=== PATIENT | male | born 1995 | race Caucasian/White ===

== ENCOUNTER 2017-06-20 14:02 | Emergency (ER) | payer OTHER, SELFPAY ==
[~2017-06-20] VITALS: Ht 185.4 cm; Wt 118.0 kg
[2017-06-20 16:11] LABS: BASO % 0.3 % (0.0-1.0); EOS # 0.3 K/mm3 (0.0-0.50); EOS % 3.3 % (0.0-3.0); LARGE UNSTAINED CELL # 0.1 K/mm3 (0.0-0.4); LARGE UNSTAINED CELL % 1.3 % (0.0-4.0); LYMPH # 2.3 K/mm3 (1.5-6.5); MEAN CORPUSCULAR HEMOGLOBIN 31.8 pg (27.0-33.0); MEAN CORPUSCULAR HGB CONC 34.5 g/dl (32.0-36.5); MEAN CORPUSCULAR VOLUME 92.2 fl (80.0-96.0); MONO # 0.4 K/mm3 (0.0-0.8); MONO % 4.1 % (0.0-5.0); NEUTROPHILS # 5.9 K/mm3 (1.8-7.7); NEUTROPHILS % 66.1 % (36.0-66.0); PLATELET COUNT, AUTOMATED 232 k/mm3 (150-450); RED CELL DISTRIBUTION WIDTH 12.1 % (11.5-14.5); WHITE BLOOD COUNT 8.9 K/mm3 (4.0-10.0)
[2017-06-20 16:36] LABS: ALBUMIN 4.3 GM/DL (3.2-5.2); ALBUMIN/GLOBULIN RATIO 1.48 (1.00-1.93); ALKALINE PHOSPHATASE 71 U/L (45-117); ALT/SGPT 44 U/L (12-78); AMYLASE 63 U/L (25-115); ANION GAP 10 MEQ/L (8-16); AST/SGOT 22 U/L (15-37); BILIRUBIN,DIRECT 0.1 MG/DL (0.0-0.2); BILIRUBIN,TOTAL 0.5 MG/DL (0.2-1.0); BLOOD UREA NITROGEN 11 MG/DL (7-18); CALCIUM LEVEL 8.9 MG/DL (8.5-10.1); CARBON DIOXIDE LEVEL 25 MEQ/L (21-32); CHLORIDE LEVEL 106 MEQ/L (98-107); CREATININE FOR GFR 1.02 MG/DL (0.70-1.30); GLOMERULAR FILTRATION RATE > 60.0 (>60); GLUCOSE, FASTING 87 MG/DL (70-105); POTASSIUM SERUM 3.8 MEQ/L (3.5-5.1); SODIUM LEVEL 141 MEQ/L (136-145); TOTAL PROTEIN 7.2 GM/DL (6.4-8.2)
[2017-06-20] MEDS ORDERED: NS 1,000 ML IV ONE (16:45)
[2017-06-20] MEDS ORDERED: ISOVUE-370 76% 100ML VIAL (Q9967) As Ordered ONE (16:45)
[2017-06-20] MEDS ORDERED: MORPHINE 2 MG/ML 1ML SYRINGE IV PRN (16:45)
[2017-06-20] MEDS ORDERED: ONDANSETRON 4MG/2ML VIAL (J2405) IV ONE (16:45)
--- NOTE | 2017-06-20 18:04 | REP ---
CT ABDOMEN AND PELVIS WITH CONTRAST: HISTORY: Right lower quadrant pain. CONTRAST: Isovue-370, 100 mL The liver, gallbladder, pancreas, spleen, adrenal glands and kidneys are normal in appearance. There is no mass, adenopathy or free fluid. The visualized lungs are clear. IMPRESSION: Normal CT abdomen. CT PELVIS: The prostate gland and urinary bladder are normal in appearance. There is no mass, adenopathy or free fluid. IMPRESSION: Normal CT pelvis. Signed by Rashard Perez MD 06/20/2017 06:18 P
[2017-06-20 18:34] VITALS: BP 140/71
== END 2017-06-20 18:36 | disposition home or self-care (01) ==
LOC: M ED 14:02
DX: A08.4 Viral intestinal infection, unspecified (principal); I10 Essential (primary) hypertension; F17.210 Nicotine dependence, cigarettes, uncomplicated; Z88.0 Allergy status to penicillin
CPT/HCPCS: 74177; 80048; 80076; 81001; 82150; 83690; 85025; 96374; 96375; 99283; J2405; Q9967

== ENCOUNTER → 2017-06-24 | Outpatient (REF) | payer OTHER, SELFPAY | LOC: M SFHCLERA 15:07 | PROVIDERS: ATTEND Nurse Practitioner Family | DX: R10.9 Unspecified abdominal pain (principal) ==

== ENCOUNTER 2018-10-02 07:19 | Emergency (ER) | payer OTHER, SELFPAY ==
[2018-10-02] MEDS: KETOROLAC TROMETHAMINE 10 MG TAB PO (08:52)
[2018-10-02] MEDS: metroNIDAZOLE (FLAGYL) 500 MG TAB PO (08:52)
[2018-10-02] MEDS: ERYTHROMYCIN 250 MG TABLET PO (08:53)
== END 2018-10-02 08:55 | disposition home or self-care (01) ==
LOC: M ED 07:19
DX: L05.01 Pilonidal cyst with abscess (principal)
CPT/HCPCS: 99283

== ENCOUNTER 2018-11-17 10:57 | Day surgery (SDC) | payer OTHER ==
[~2018-11-17] VITALS: Ht 182.9 cm; Wt 125.2 kg
[~2018-11-17 10:57] MED LIST: ERYT-52 PO; FLAG500T PO; LR 1,000 ML IV ONE; NORCOTAB PO; VANCOMYCIN HCL 1,000 MG, VIAL MATE ADAPTER 1 EACH in D5W 250 ML IV ONE
[2018-11-17] MEDS ORDERED: dexameTHASONE 4 MG/ML 1ML VIAL (J1100) As Ordered ONE (12:33)
[2018-11-17] MEDS ORDERED: PROPOFOL 200 MG/20 ML VIAL As Ordered ONE (12:33)
[2018-11-17] MEDS ORDERED: ONDANSETRON 4MG/2ML VIAL (J2405) As Ordered ONE (12:33)
[2018-11-17] MEDS ORDERED: LIDOCAINE 2% INJ 100 MG/5 ML SDV (FOR ANES.) As Ordered ONE (12:33)
[2018-11-17] MEDS ORDERED: ROCURONIUM BROMIDE 50 MG/5 ML VIAL As Ordered ONE ×2 (12:33→15:02)
[2018-11-17] MEDS ORDERED: fentaNYL 100 MCG/2 ML INJECTION (J3010) As Ordered ONE (12:34)
[2018-11-17] MEDS ORDERED: MIDAZOLAM INJ 2 MG/2 ML VIAL (J2250) As Ordered ONE (12:34)
[2018-11-17] MEDS ORDERED: BUPIVACAINE LIPOSOME/PF 1.3% 20ML VIAL (13.3MG/ML)(EXPAREL)(C9290 PER1MG) As Ordered ONE (13:31)
[2018-11-17] MEDS ORDERED: BUPIVACAINE HCL 0.25% 30 ML VIAL As Ordered ONE (14:42)
[2018-11-17] MEDS ORDERED: HYDROmorphone HCL 2 MG/ML 1ML VIAL (J1170) As Ordered ONE (14:47)
[2018-11-17] MEDS ORDERED: KETOROLAC 60 MG/2 ML VIAL (J1885) As Ordered ONE (15:13)
[2018-11-17] MEDS ORDERED: NORCO, ANEXSIA 5/325MG TABLET (HYDROcodone/ACETAMINOPHEN) PO PRN (16:15)
[2018-11-17] MEDS ORDERED: fentaNYL 100 MCG/2 ML INJECTION (J3010) IV PRN (16:15)
[2018-11-17] MEDS ORDERED: METOCLOPRAMIDE INJ 10MG/2ML VIAL (J2765) IV PRN (16:15)
[2018-11-17] MEDS ORDERED: MEPERIDINE INJ 25 MG/ML VIAL (J2175) IV PRN (16:15)
[2018-11-17] MEDS ORDERED: IBUPROFEN 600 MG TAB PO PRN (16:15)
[2018-11-17] MEDS ORDERED: PERCOCET 5MG/325MG TAB PO PRN (16:15)
[2018-11-17] MEDS ORDERED: LR 1,000 ML IV SCH (16:15)
[2018-11-17] MEDS ORDERED: ACETAMINOPHEN TAB 650MG DOSE (2X325MG) PO PRN (16:15)
[2018-11-17] MEDS ORDERED: ONDANSETRON 4MG/2ML VIAL (J2405) IV PRN (16:15)
[2018-11-17 17:50] VITALS: BP 129/60
--- NOTE | 2018-11-19 14:12 | RO ---
DATE OF PROCEDURE: 11/17/2018 PREOPERATIVE DIAGNOSIS: Pilonidal cyst. POSTOPERATIVE DIAGNOSIS: Pilonidal cyst. PROCEDURE PERFORMED: Pilonidal cystectomy. SURGEON: Tonio Machado MD ANESTHESIA: General. INDICATIONS FOR PROCEDURE: Patient is 23-year-old man who about a year ago had an infection of the top of the gluteal cleft which drained spontaneously. Recently he had another recurrence of some drainage from the skin near the top of the gluteal cleft. Inspection revealed a single large pore or pit, right along the midline with findings consistent with pilonidal cyst disease. He is now for pilonidal cystectomy. OPERATIVE PROCEDURE: The patient was placed under general anesthesia and then rolled into a prone jackknife position. The patient's lower back, buttocks and gluteal cleft were prepped and draped in a sterile fashion. Inspection revealed a single very distinct pit in the skin at the top of the gluteal cleft. This was probed, but the probe did not really insert beyond the apparent depth of the pit. A small elliptical excision was outlined approximately 3 cm in length x 1-1/2 cm in width with the pore centered in this ellipse. The skin was incised and the incision was deepened through the subcutaneous tissues down toward the fascia. Dissection was carried out circumferentially and then the tissues were transected at the deep aspect of the wound. The specimen was inspected and in one area it was noted that there were a couple of small hairs there were protruding through the deep portion of tissue. There was not a distinct cyst evident, but certainly some thickened scar tissue in this area. Additional tissue was taken in this area where the hair was identified back to what appeared to be normal tissue. Hemostasis was ensured with the cautery. A small additional area of skin was excised on the left edge. I considered closing the wound but it was fairly deep relative to the length of the wound and I felt this would be likely to heal better and more reliably leaving it open to heal by secondary intention. Therefore, the cautery was used to ensure hemostasis. 20 mL of Exparel was mixed with 20 mL of 0.25% Marcaine and approximately 25 mL of this was infiltrated widely surrounding the pilonidal cystectomy wound. The wound was filled gently with some saline moistened gauze and a bulky bandage was applied. The patient tolerated the procedure well without apparent complication. He was returned to a supine position on the stretcher and was awakened and extubated and transported to the recovery room in stable condition. [id number]
== END 2018-11-17 18:00 | disposition home or self-care (01) ==
LOC: M SDC 10:57 → MERGE 15:05 → M SDC 18:00
PROVIDERS: ATTEND Surgery
DX: L05.91 Pilonidal cyst without abscess (principal); Z88.0 Allergy status to penicillin
CPT/HCPCS: 11770; 88304; C9290; J1100; J1170; J1885; J2250; J2405; J3010; J3370

== ENCOUNTER 2024-04-29 20:56 | Emergency (ER) | payer OTHER ==
[~2024-04-29] VITALS: Ht 185.4 cm; Wt 110.5 kg
[~2024-04-29 20:56] MED LIST changes: -ERYT-52 PO; +ERYT-88 PO; +HYDR-3715 PO; -LR 1,000 ML IV ONE; -NORCOTAB PO; -VANCOMYCIN HCL 1,000 MG, VIAL MATE ADAPTER 1 EACH in D5W 250 ML IV ONE
[2024-04-29 23:26] VITALS: BP 133/67; TEMP 98.2; O2SAT 98
== END 2024-04-30 03:06 | disposition left against medical advice (07) ==
LOC: M ED 20:56
DX: Z53.21 Procedure and treatment not carried out due to patient leaving prior to being seen by health care provider (principal)